=== PATIENT | female | born 1965 | race Caucasian/White ===

== ENCOUNTER 2018-09-13 22:30 | Emergency (ER) | payer MEDICARE ==
--- NOTE | 2018-09-13 22:46 | Emergency Department Record ---
History of Present Illness - General Chief complaint: Pain Stated complaint: COUGH Time Seen by Provider: 09/13/18 22:37 Source: Patient Mode of Arrival: EMS Limitations: No limitations - History of Present Illness Initial comments: The patient is here due to having a bad cough for 3 days. She has had L sided rib pain with coughing all day today. About 2 hours ago there was also a sharp stabbing pleuritic pain over the L chest but that has resolved. The patient denies any sputum, fever, chills, AVINA, or back pain. She is a smoker and has recently had pneumonia and was last on Abx's 4-5 weeks ago. Complaint: Other Onset/Timin -: Days(s) Location: Left, Other Radiation: Other Severity scale (1-10): 7 Quality: Sharp, Stabbing Consistency: Intermittent Improves with: Rest Worsens with: Other Associated Symptoms: Denies other symptoms - Related Data Home Medications Medication Instructions Recorded Confirmed Last Taken Aspirin/Dipyridamole [Aggrenox 25 1 each PO DAILY 09/13/18 09/13/18 09/12/18 mg-200 mg Capsule] Lisinopril 10 mg PO DAILY 09/13/18 09/13/18 09/12/18 Metoprolol Succinate [Toprol Xl] 25 mg PO BID 09/13/18 09/13/18 09/12/18 Niacin [Niacor] 500 mg PO DAILY 09/13/18 09/13/18 09/12/18 Omeprazole 40 mg PO DAILY 09/13/18 09/13/18 09/12/18 Oxycodone HCl [Oxaydo] 7.5 mg PO ASDIR 09/13/18 09/13/18 Unknown Saxagliptin HCl/Metformin HCl 1 each PO DAILY 09/13/18 09/13/18 09/12/18 [Kombiglyze Xr 2.5-1,000 mg Tab] Previous Rx's Medication Instructions Recorded Doxycycline Monohydrate [Mondoxyne 100 mg PO BID #14 capsule 09/13/18 Nl] Allergies Allergy/AdvReac Type Severity Reaction Status Date / Time tramadol AdvReac PT UNSURE Verified 09/13/18 22:44 OF REACTION Travel Screening - Travel/Exposure Within Last 30 Days Have you traveled within the last 30 days?: No - Travel Symptoms Symptom Screening: None Review of Systems Constitutional: Denies: Chills, Fever Eyes: Denies: Eye discharge ENT: Denies: Congestion Respiratory: Reports: Cough. Denies: Dyspnea, Hemoptysis, Stridor, Wheezes Cardiovascular: Reports: Chest pain. Denies: Arrhythmia, Dyspnea on exertion Endocrine: Denies: Fatigue Gastrointestinal: Denies: Abdominal pain Genitourinary: Denies: Dysuria Musculoskeletal: Denies: Back pain Past Medical History - SOCIAL HISTORY Smoking Status: Light tobacco smoker (<10/day) Alcohol Use: None Drug Use: None - RESPIRATORY Hx Respiratory Disorders: Yes Hx COPD: Yes Hx Pneumonia: Yes - CARDIOVASCULAR Hx Cardio Disorders: Yes Hx Hypertension: Yes - NEURO Hx Neuro Disorders: No - GI Hx GI Disorders: No - Hx Genitourinary Disorders: No - ENDOCRINE Hx Endocrine Disorders: Yes Hx Diabetes: Yes - MUSCULOSKELETAL Hx Musculoskeletal Disorders: Yes Hx Arthritis: Yes - PSYCH Hx Psych Problems: No - HEMATOLOGY/ONCOLOGY Hx Hematology/Oncology Disorders: No Family Medical History Any Significant Family History?: Yes Hx Diabetes: Brother/Sister Physical Exam - General General Appearance: Alert, Oriented x3, Cooperative, No acute distress - Head Head exam: Atraumatic, Normocephalic, Normal inspection - Eye Eye exam: Normal appearance, PERRL, EOMI - ENT Throat exam: Normal inspection. negative: Tonsillar erythema, Tonsillar exudate - Neck Neck exam: Normal inspection, Full ROM. negative: Tenderness - Respiratory Respiratory exam: Normal lung sounds bilaterally, Chest wall tenderness (There is L sided chest wall tenderness.). negative: Respiratory distress - Cardiovascular Cardiovascular Exam: Regular rate, Normal rhythm, Normal heart sounds - GI/Abdominal GI/Abdominal exam: Soft, Normal bowel sounds. negative: Tenderness - Extremities Extremities exam: Normal inspection, Full ROM, Normal capillary refill. negative: Tenderness - Back Back exam: Reports: Normal inspection - Neurological Neurological exam: Alert, Normal gait. negative: Abnormal gait, Motor sensory deficit Course Vital Signs 09/13/18 22:31 Temperature 98.6 F Pulse Rate [ 103 H Pulse Ox Probe] Respiratory 24 Rate Blood Pressure 155/83 [Left Arm] Pulse Ox 97 - Reevaluation(s) Reevaluation #1: The patient is doing very well at this time. She is resting comfortably with no significant L CP or SOB. I did discuss the lab results with the patient and did discuss the elevated creatinine. The patient is not sure if that is new. I also recommended hospital admission for cardiac monitoring and to R/O an [place] but the patient is refusing. She states she lives in [place] and will go back home tomorrow to see her multiple doctors. I explained to her that by NOT following our recommendations she could go home and have an [place], stroke, become disabled and . The patient understands the risks and accepts the risks. She was also told to return to the ER for any worsening symptoms. At this time the patient has proper decision making capacity and understands the risks of refusing and accepts the risks. 09/13/18 23:35 09/13/18 23:53 Medical Decision Making - Data Complexity MDM Data: Labs Ordered and/or Reviewed, X-Ray Ordered and/or Reviewed, EKG Ordered and/or Reviewed - Lab Data Result diagrams: 09/13/18 22:50 09/13/18 22:50 - EKG Data -: EKG Interpreted by Me EKG: No Acute Changes, Normal EKG - Radiology Data Radiology results: Report reviewed (CXR: Neg.) Disposition Disposition: Discharge (atypical) Clinical Impression: Chest pain, atypical Disposition: Against Medical Advice Condition: (2) Stable Instructions: Chest Pain (ED) Additional Instructions: Please take the Doxycycline as directed and please stop smoking. Please see your family doctor DAKOTAH when you get back home. Please return to the ER for any worsening symptoms. Prescriptions: Doxycycline Monohydrate [Mondoxyne Nl] 100 mg PO BID #14 capsule Forms: Patient Portal Access Time of Disposition: 23:40 Quality - Quality Measures Quality Measures: N/A - Blood Pressure Screening View Details: Yes Does Patient Have Any of the Following: No Blood Pressure Classification: Normal BP Reading Systolic Measurement: 103 Diastolic Measurement: 64 Screening for High Blood Pressure: < Normal BP, F/U Not Required > [[id number]]
[2018-09-13 22:58] LABS: HEMATOCRIT 32.9 % (35.0-47.0); HEMOGLOBIN 10.2 gm/dl (11.6-16.0); MEAN CELL VOLUME 86.1 fl (81-97); MEAN CORPUSCULAR HEMOGLOBIN 26.7 pg (27-33); MEAN PLATELET VOLUME 10.5 fl (7.4-10.4); PLATELET COUNT 269 K/uL (130-400); RED BLOOD COUNT 3.82 M/uL (3.80-5.40); RED CELL DISTRIBUTION WIDTH 19.4 % (11.5-14.5)
[2018-09-13 23:06] LABS: ANISOCYTOSIS 2+
[2018-09-13 23:11] LABS: BLOOD UREA NITROGEN 20 mg/dL (6-20); CREATININE 1.6 mg/dL (0.5-0.9); EST GLOMERULAR FILTRATION RATE 36 mL/min
[2018-09-13 23:13] LABS: INR 1.1; PARTIAL THROMBOPLASTIN TIME 29.9 SECONDS (24.5-39.1); PROTHROMBIN TIME (PATIENT) 10.6 SECONDS (9.5-12.1)
[2018-09-13 23:14] LABS: GLUCOSE,RANDOM 138 mg/dL (74-109)
[2018-09-13 23:17] LABS: CREATINE PHOSPHOKINASE 59 U/L (26-192)
[2018-09-13 23:19] LABS: CKMB 1.5 ng/mL (<3.77)
[2018-09-13] MEDS ORDERED: DOXYCYCLINE HYCLATE 100 MG CAPSULE PO ONE (23:25)
--- NOTE | 2018-09-15 07:54 | RADIOLOGY REPORT ---
EXAM: CHEST, TWO VIEWS HISTORY: COUGH FOR THREE DAYS WITH LEFT SIDED CHEST PAIN. TECHNIQUE: PA and lateral views of the chest were obtained. Comparison: None. FINDINGS: The heart size is normal. There is some vague density on the frontal view at the left lateral costophrenic angle, however, the hemidiaphragm is maintained and there is no pleural fluid blunting the costophrenic angle and this may just be a fat pad in this region. Small patch of infiltrate felt to be less likely. The right lung is clear. Mild spurring in the spine. Postop changes right upper quadrant of the abdomen. IMPRESSION: 1. VAGUE DENSITY LEFT LATERAL COSTOPHRENIC ANGLE ON THE PA VIEW OF QUESTIONABLE SIGNIFICANCE. THIS MAY JUST BE A FAT PAD. A SMALL AMOUNT OF INFILTRATE IS FELT TO BE LESS LIKELY. IF SYMPTOMS PERSIST, FOLLOW-UP PA AND LATERAL VIEWS ARE SUGGESTED. 2. POSTOP CHANGES RIGHT UPPER QUADRANT OF THE ABDOMEN. JOB NUMBER: [id number] MTDD
== END 2018-09-13 23:46 | disposition left against medical advice (07) ==
LOC: ER 22:30
DX: R07.89 Other chest pain (principal); R79.89 Other specified abnormal findings of blood chemistry; J44.9 Chronic obstructive pulmonary disease, unspecified; E11.9 Type 2 diabetes mellitus without complications; I10 Essential (primary) hypertension; F17.210 Nicotine dependence, cigarettes, uncomplicated
CPT/HCPCS: 71046; 80048; 82550; 82553; 84484; 85027; 85379; 85610; 85730; 93005; 93010; 99284